=== PATIENT | male | born 1970 | race Caucasian/White ===

== ENCOUNTER 2022-12-22 21:03 | Emergency (ER) | payer OTHER, SELFPAY ==
[2022-12-22 21:19] VITALS: BP 140/88; PULSE 88; RESP 18; TEMP 36.4; O2SAT 97
--- NOTE | 2022-12-22 21:36 | ED_ITS ---
HPI - General Adult General Chief complaint: Burn/Smoke Inhalation Stated complaint: R hand burn Time Seen by Provider: 12/22/22 21:34 History of Present Illness HPI narrative: around 330pm pt was taking off a radiator cap , steam and hot liquid covered his hand ( right). Pain is getting worse, swelling is beginning to happen. Pain rated 10/ 10. Pt is able to bend all fingers and has feeling to finger tips. 52-year-old man presenting to the emergency department 6 or 7 hours after burning his hand on steam from a radiator. His right hand. Has intensifying burning pain. Spoke to pharmacist and has used a 4% lidocaine and aloe containing gel. Otherwise has been cooling in front of a fan but primarily in iced/cold water and applying cold packs. This did blister but the blisters have already popped. He can not feel very well the dorsal middle phalanx he gestures to the 3rd and 4th fingers. Apparently was recommended for Silvadene cream as well Review of Systems Status of ROS: Reports: 6 or more systems reviewed and unremarkable except as noted in History and below [facility] Social History How often do you have a drink containing alcohol: 2-3 times a week AUDIT-C Alcohol total score: 3 Non-prescribed substance use: denies use Exam Narrative: Exam Narrative: Pleasant. Calm but appears uncomfortable. Has ice and water in the bag surrounded by it towel that he is applying to his hand. It has leaked and moistened the towel. The right hand in question has some trace remnants of blisters. [place]. Not terribly tense but generally mildly puffy. Very good capillary refill. Sensation generally intact. I see primarily first-degree but given that there are some blisters that have popped, second-degree meek as well. Tender to palpation over the dorsal fingers in particular. Const: Vital Signs, click to edit/add: Vital Signs - 24 hr 12/22/22 21:19 Temperature 97.6 F Pulse Rate [Left P ulse Oximeter] 88 Respiratory Rate 18 Blood Pressure [Le ft Upper Arm] 140/88 H Pulse Oximetry 97 Oxygen Delivery Me thod Room Air Documenting provider has reviewed patient's vital signs: yes Course Vital Signs Vital signs: Initial Vital Signs Temperature 97.6 F 12/22/22 21:19 Temperature Source Temporal Artery Scan 12/22/22 21:19 Pulse Rate 88 12/22/22 21:19 Pulse Rhythm Regular 12/22/22 21:19 Respiratory Rate 18 12/22/22 21:19 Blood Pressure 140/88 H 12/22/22 21:19 Blood Pressure Mean 105 12/22/22 21:19 Blood Pressure Position Sitting 12/22/22 21:19 Pulse Oximetry 97 12/22/22 21:19 Oxygen Delivery Method Room Air 12/22/22 21:19 Vital Signs Temperature 97.6 F 12/22/22 21:19 Pulse Rate 88 12/22/22 21:19 Respiratory Rate 18 12/22/22 21:19 Blood Pressure 140/88 H 12/22/22 21:19 Pulse Oximetry 97 12/22/22 21:19 Oxygen Delivery Method Room Air 12/22/22 21:19 Temperature 97.6 F 12/22/22 21:19 Pulse Rate 88 12/22/22 21:19 Respiratory Rate 18 12/22/22 21:19 Blood Pressure 140/88 H 12/22/22 21:19 Pulse Oximetry 97 12/22/22 21:19 Oxygen Delivery Method Room Air 12/22/22 21:19 Medical Decision Making MDM Narrative Medical decision making narrative: He has good perfusion. I do not see significant evidence of compartment syndrome here. I think continuing to cool is appropriate. He wanted some cooling dressings and so did apply burn dressing which offered temporary relief until increased to skin temperature I think. Then he was looking forward to placing it back in the ice water bath. No antibiotics necessary at this time. I do not see some much skin erosion. The blistering that had occurred was very for superficial. I would not use Silvadene in this case either. See patient discharge plan Discharge Plan Discharge Clinical Impression: Second degree burn of hand, First degree burn of hand Patient Disposition: Home w/ Parent or Adult Condition: Stable Additional Instructions: Try to keep cooling over the first 24 - 48 hours. Keep moist with aloe vera gel when not cooling in very cool/iced water. Use aloe vera gel for the 1st 48 hours generally. Watch for marked increase in tension, redness, persistent blanching/not pinking up of finger tips/nail beds, severe increase in pain. Elevate also for comfort. Can take up to 800 mg of ibuprofen or up to 1000 mg of acetaminophen per dose. These can be combined. Remember that each tablet of Percocet contains 325 mg of acetaminophen. After a few days might apply antibiotic ointment to resolved blister areas. Percocet from [facility]. I would take 2 tabs to start with. Stand Alone Forms: [employer] [place] Info Instructions
== END 2022-12-22 22:25 | disposition home or self-care (01) ==
LOC: ED 22:19
PROVIDERS: Emergency Provider Family Medicine; PCP Family Medicine
DX: T23.201A Burn of second degree of right hand, unspecified site, initial encounter (principal); T23.101A Burn of first degree of right hand, unspecified site, initial encounter; X12.XXXA Contact with other hot fluids, initial encounter
CPT/HCPCS: 99283; 99284